=== PATIENT | male | born 1955 | race Caucasian/White ===

== ENCOUNTER 2025-02-02 09:20 | Outpatient (CLI) | payer MEDICARE, SELFPAY ==
--- NOTE | 2025-02-02 09:31 | ECG_ITS ---
Test Date: 2025-02-02 09:35:24 Measurements Intervals [place] Rate: 73 P: 31 MD: 171 QRS: -6 QRSD: 101 T: 174 QT: 379 QTc: 419 Interpretive Statements SINUS RHYTHM LEFT VENTRICULAR HYPERTROPHY AND ST-T CHANGE [VOLTAGE CRITERIA PLUS ST/T ABNORMALITY] No previous ECG available for comparison Electronically Signed On 02-02-2025 11:47:57 CDT by Shaq Rhoades M.D.
--- OUTSIDE RECORDS SUMMARY | 2025-02-02 10:05 | XMS_ITS | Encounter Summary ---
Author Organization [facility] Address [address] [place] [address] Care Team Providers Care Lieutenant Ballistics Name Role Phone Maral Morataya DO Primary Care Provider Maral Morataya DO Unavailable [phone] Encounter Details Date Type Department Care Team (Late Contact Info) Description 09/22/2018 Lab Requisition [facility] MAIN [facility] [address] [place] [id number] Unlisted, Ordering Provider, Social History Tobacco Use Types Packs/Day Years Used Date Smoking Tobacco: Light Smoker Smokeless Tobacco: Never Alcohol Use Standard Drinks/Week Comments Yes 0 (1 standard drink = 0.6 oz pur e alcohol) Sex and Gender Information Value Date Recorded Sex Assigned at Male 02/12/2022 10:41 AM CDT Gender Identity Male 02/12/2022 10:41 AM CDT Sexual Orientation Straight 02/12/2022 10 :41 AM CDT documented as of this encounter Plan of Treatment Upcoming Encounters Date Type Department Care Team (Late Contact Info) Description 02/23/2025 9:50 AM CDT Office Visit [facility] - Internal Med [address] [facility], [place] [phone] Maral Morataya DO [address] [place] [address] DIV OF [facility] [place] [id number] documented as of this encounter Visit Diagnoses Not on filedocumented in this encounter Additional Health Concerns Infection Onset Date Last Indicated Resolved Time COVID-19 Under Investigation 01/30/2021 01/30/2021 01/31/2021 2:11 AM CDT documented as of this encounter Care Teams Lieutenant Ballistics Relationship Specialty Start Date End Date Maral Morataya DO [address] [place] [address] PCP - General 06/02/17 Maral Morataya DO [address] OF [facility] [place] [address] PCP - Attributed-[facility] 03/09/23 12/27/24 documented as of this encounter
--- OUTSIDE RECORDS SUMMARY | 2025-02-02 10:05 | XMS_ITS | Encounter Summary ---
Author Organization [facility] Address [address] [facility] [place] [address] Care Team Providers Care Sawsmith Name Role Phone Maral Morataya DO Primary Care Provider [phone] Maral Morataya DO Unavailable [phone] Encounter Details Date Type Department Care Team (Late Contact Info) Description 09/23/2018 Lab Requisition [facility] [address] [place] [phone] Unlisted, Ordering Provider, Social History Tobacco Use [...] [facility] - Internal Med [address] [facility], [place] [phone] Maral Morataya DO [address] [place] [address] DIV OF [facility] [place] [phone] documented as of this encounter Procedures Procedure Name Priority Date/Time Associated Diagnosis Comments GLUCOSE VITALITY Routine 09/25/2018 7:55 AM SAVINGS TELLER HEMOGLOBIN A1C Routine 09/25/2018 7:55 AM SAVINGS TELLER LIPID PROFILE Routine 09/25/2018 7:55 AM SAVINGS TELLER documented in this encounter Results * HEMOGLOBIN A1C (09/25/2018 7:55 AM SAVINGS TELLER) Hemoglobin A1c 5.6 4.4 - 6.3 % 09/25/2018 10:15 AM SAVINGS TELLER [facility] Estimated Average Glucose 114 mg/dL 09/25/2018 10:15 AM [facility] Comment: HbA1c Interpretation: Treatment target values recommended by ADA and other clinical organizations should be used to evaluate metabolic control in patients. Treatment Target Values: Normal : < 5.7% Pre-diabetes: 5.7-6.4% Diabetes: Equal to or greater than 6.5% Reference: [place] [employer] Association Standards of Care in Diabetes -2014 In patients 70 years and older consider HbA1c target range of 7.0-7.5% Reference: Diabetes Mellitus in Older People: Position Statement on behalf of the International Association of Gerontology and Geriatrics (IAGG), the Diabetes Working Alliance Party for Older People (EDWPOP), and the International Task Force of Experts in Diabetes. Hans Garcia, et al. J [place] [employer] Association. 2012 Test results diagnostic of diabetes should be repeated for confirmation. The Tosoh G8 assay for the measurement of HbA1c is a National Glycohemoglobin Standardization Program (NGSP)certified method. Results for patients with HbE disease should be interpreted with caution as this hemoglobinopathy has been shown to interfere with the Tosoh G8 assay. Blood 09/25/2018 7:55 AM SAVINGS TELLER 09/25/2018 8:54 AM SAVINGS TELLER Ordering Provider Unlisted LAB - CHEM ISTRY ORDERABLES [facility] [address] [phone] * (ABNORMAL) LIPID PROFILE (09/25/2018 7:55 AM SAVINGS TELLER) Cholesterol Total 185 <200 mg/dL 09/25/2018 9:30 AM [facility] HDL 42 >40 mg/dL 09/25/2018 9:30 AM [facility] Comment: ATP III Classification of HDL Cholesterol: <40 mg/dL: Considered a major risk factor. >60 mg/dL: Considered a negative risk factor. LDL Calculated 126(H) <100 mg/dL 09/25/2018 9:30 AM [facility] Comment: ATP III Classification of LDL Cholesterol: <100 mg/dL: Optimal 100 - 129 mg/dL: Near Optimal/Above Optimal 130 - 159 mg/dL: Borderline High 160 - 189 mg/dL: High >190 mg/dL: Very High Triglycerides 87 <150 mg/dL 09/25/2018 9:30 AM [facility] Comment: ATP III Classification of Triglycerides: <150 mg/dL: Normal 150 - 199 mg/dL: Borderline High 200 - 400 mg/dL: High >500 mg/dL: Very High Blood 09/25/2018 7:55 AM SAVINGS TELLER 09/25/2018 8:54 AM SAVINGS TELLER Ordering Provider Unlisted LAB - CHEM ISTRY ORDERABLES Performing Organization Address City/[facility] [place] Co de Phone Number [address] [phone] * GLUCOSE VITALITY (09/25/2018 7:55 AM SAVINGS TELLER) Glucose 110 70 - 115 mg/dL 09/25/2018 9:20 AM [facility] Blood 09/25/2018 7:55 AM SAVINGS TELLER 09/25/2018 8:54 AM SAVINGS TELLER Ordering Provider Unlisted LAB - CHEM ISTRY ORDERABLES Performing Organization Address [facility]/ZIP Co de Phone Number [address] [phone] documented in this encounter Visit Diagnoses Not on filedocumented in this encounter Additional Health Concerns Infection Onset Date Last Indicated Resolved Time COVID-19 Under Investigation 01/30/2021 01/30/2021 01/31/2021 2:11 AM CDT documented as of this encounter Care Teams Sawsmith Relationship Specialty Start Date End Date Maral Morataya DO [address] [place] [address] PCP - General 06/02/17 Maral Morataya DO [address] OF [facility] [place] [phone] PCP - Attributed-[facility] 03/09/23 12/27/24 documented as of this encounter
--- OUTSIDE RECORDS SUMMARY | 2025-02-02 10:05 | XMS_ITS | Encounter Summary ---
Author Organization [facility] Address [address] [facility] [place] [address] Care Team Providers Care Mental Health Therapist Name Role Phone Maral Morataya DO Primary Care Provider [phone] Maral Morataya DO Unavailable [phone] Reason for Visit * Reason Onset Date Comments MEDICATION REFILL 09/09/2022 Encounter Details Date Type Department Care Team (Late st Contact Info) Description 09/09/2022 Refill [facility] [address] [facility] [place] [phone] Maral Morataya DO [address] [place] [address] OF [facility] [place] [phone] MEDICATION REFILL Social History Tobacco Use Types Packs/Day Years [...] AM CDT documented as of this encounter Miscellaneous Notes * Telephone Encounter - Jes Manuel RN - 09/09/2022 10:31 AM CDT Change of pharmacy Refill Request Ted Mejia JULIO: 03/25/22 NOV scheduled: 02/03/2023 LRF: 05/22/22 Qty Disp: 90 # of refills: 4 Allergies: No Known Allergies Pended Medication Order: Requested Prescriptions Pending Prescriptions Disp Refills ??? amLODIPine (Norvasc) 5 MG tablet 90 tablet 4 Sig: Take 1 (one) tablet by mouth once daily documented in this encounter Plan of Treatment Upcoming Encounters Date Type Department Care Team (Late st Contact Info) Description 02/23/2025 9:50 AM CDT Office Visit [facility] - Internal Med [address] [facility], [facility] [place] [phone] Maral Morataya DO [address] [facility] [address] DIV OF [facility] [place] [phone] documented as of this encounter Visit Diagnoses Diagnosis Essential hypertension documented in this encounter Care Teams Mental Health Therapist Relationship Specialty Start Date End Date Maral Morataya DO [address] [place] [address] PCP - General 06/02/17 Maral Morataya DO [address] [facility] [address] DIV OF [facility] [place] [phone] PCP - Attributed-[facility] ST[facility] 03/09/23 12/27/24 documented as of this encounter
--- OUTSIDE RECORDS SUMMARY | 2025-02-02 10:05 | XMS_ITS | Clinical Summary ---
Author Organization [facility] [employer] Address [address] [place] [address] Care Team Providers Care Registered Dental Assistant Name Role Phone Maral Morataya DO Primary Care Provider [phone] Source Comments [facility] [employer],non-owned Affiliates and Associated Physician Practices is amultiple site organization consisting of ambulatory clinics and hospital sitesin [place], [place], [place] and [place]. This disclosure is being madepursuant to the Care Everywhere program and may not contain all information available regarding this patient. Last updated 18.[facility] [employer] Allergies No known active allergies Medications * Be aware that medications may not be up to date on this document. Alwaysverify current medications with the patient. Medication Sig Dispensed Refills Start Date End Date Status opti-vitamin (V-R VISTION) tablet Take 1 (one) tablet by mouth once daily Active erythromycin (Romycin) 5 MG/GM ophthalmic ointment Instill into both eyes at bedtime Apply thin ribbon to lower lid(s) 3.5 g 5 12/23/2023 Active amLODIPine (Norvasc) 5 MG tabletIndications: Essential (primary) hypertension TAKE ONE TABLET BY MOUTH ONCE DAILY 90 tablet 2 04/27/2024 04/27/2025 Active valACYclovir (Valtrex) 500 MG tabletIndications: Herpesviral infection, unspecified TAKE ONE TABLET BY MOUTH ONCE DAILY 90 tablet 2 04/27/2024 04/27/2025 Active rosuvastatin (Crestor) 10 MG tabletIndications: Hyperlipidemia, unspecified TAKE ONE TABLET BY MOUTH ONCE DAILY 90 tablet 2 04/27/2024 04/27/2025 Active meloxicam (Mobic) 15 MG tabletIndications: Unilateral primary osteoarthritis, left knee TAKE ONE TABLET BY MOUTH ONCE DAILY 90 tablet 11/30/2024 11/30/2025 Active rOPINIRole (Requip) 1 MG tabletIndications: Restless legs syndrome TAKE ONE TABLET BY MOUTH FOUR TIMES A DAY 360 tablet 01/25/2025 01/25/2026 Active ibuprofen (MOTRIN) 800 MG tablet Take 1 (one) tablet by mouth once daily 01/25/2025 Discontinued (List Clean-Up) tobramycin-dexAMET Hasone (TOBRADEX) 0.3-0.1 % ophthalmic suspension Instill 1 (one) drop into right eye every 6 hours 5 mL 1 04/22/2022 01/25/2025 Discontinued (List Clean-Up) rOPINIRole (Requip) 1 MG tabletIndications: Restless legs syndrome TAKE ONE TABLET BY MOUTH FOUR TIMES A DAY 360 tablet 1 10/03/2024 01/25/2025 Discontinued (Reorder) Active Problems Problem Noted Date Diagnosed Date Acute pain of left knee 01/21/2023 Enlarged prostate with lower urinary tract sympt oms (LUTS) 06/03/2017 Overview (02/08/2018): Better with Alfuzosin HCl (UROXATRAL) 10 MG but uses Thursday and Thursday. ICD-10 update Nocturia 06/03/2017 Overview (02/08/2018): Better with Alfuzosin HCl (UROXATRAL) 10 MG but uses Thursday and Thursday. ICD-10 update Melanocytic nevus 10/24/2015 Neoplasm of uncertain behavior of skin 5 Actinic keratosis 10/24/2015 Other seborrheic keratosis 10/24/2015 Other melanin hyperpigmentation 10/24/2015 Hyperlipidemia 03/07/2014 Overview (02/08/2018): Off Rx. Will check labs and review treatment options again after that. Restless legs syndrome 03/07/2014 Overview (02/08/2018): Takes rOPINIRole (REQUIP) 1 MG One tab at 7 PM and 2 tabs at HS. This works well. Rx for TID given. Herpesviral infection 03/07/2014 Overview (02/08/2018): Exposure to oral herpes with outbreak in past. Rare flairs but wants to try suppression. Other options reviewed. Rx sent. Encounters Date Type Department Care Team Description 01/25/2025 Refill [facility] - Orthopedics [address] [place] [address], Formerly [facility] [place] [address] Maral Morataya, DO MEDICATION REFILL 11/30/2024 Refill [facility] - Internal Med [address] [place] [address], [place] [address] Maral Morataya, DO MEDICATION REFILL from Last 3 Months Immunizations Name Administration Dates Next Due DT (AGE 0-7) 07/10/2013 INFLUENZA VACCINE 08/16/2021 PNEUMOCOCCAL PCV20 CONJ VAC IM 03/25/2022 Pneumococcal Pcv13 Conj 02/22/2019 Zoster Hzv Vacc Recombinant Inj Im 08/19/2022, Family History Medical History Relation Name Comments Diabetes Father Hypertension Father Macular Degeneration Father Hypertension Mother Relation Name Status Comments Father Mother Social History Tobacco Use Types Packs/Day Years Used Date Smoking Tobacco: Light Smoker Cigars Smokeless Tobacco: Never Tobacco Cessation:Ready to Q uit: Not Asked; Counseling Given: Not Answered Alcohol Use Standard Drinks/Week Comments Yes 0 (1 standard drink = 0.6 oz pur e alcohol) PHQ-2 Answer Date Recorded Patient Health Questionnaire-2 Score 0 08/04/2023 Sex and Gender Information Value Date Recorded Sex Assigned at Male 02/12/2022 10:41 AM CDT Gender Identity Male 02/12/2022 10:41 AM CDT Sexual Orientation Straight 02/12/2022 10 :41 AM CDT Last Filed Vital Signs Vital Sign Reading Time Taken Comments Blood Pressure 138/72 08/11/2023 9:26 AM CDT Pulse 72 08/11/2023 9:26 AM CDT Temperature 36.5 C (97.7 F) 08/11/2023 9:26 AM CDT Respiratory Rate 16 03/10/2022 12:40 PM CDT Oxygen Saturation 96% 08/11/2023 9:26 AM CDT Inhaled Oxygen Concentration - - Weight 94.6 kg (208 lb 9.6 oz) 08/11/2023 9:26 A M CDT Height 182.9 cm (6') 08/11/2023 9:26 AM CDT Body Mass Index 28.29 08/11/2023 9:26 AM CDT Plan of Treatment Upcoming Encounters Date Type Department Care Team (Late st Contact Info) Description 02/23/2025 9:50 AM CDT Office Visit [facility] - Internal Med [address] [place] [address], [place] [phone] Maral Morataya, DO [address] [place] [address] OF [facility] [place] [address] Health Maintenance Due Date Last Done Comments COLON MONITORING 1955 COLONOSCOPY - COLON CA SCREENING 1953 CT COLONOGRAPHY - COLON CA SCREENING 1955 FLEX SIG - COLON CA SCREENING 1955 AAA SCREENING 2018 COLOGUARD (AGES 45-75) - COLON CA SCREENING 03/07/2022 03/07/2019 DTAP/TDAP/TD VACCINES (2 - Tdap) 07/10/2023 07/10/2013 Colorectal Cancer Screening 07/03/2024 FIT - COLON CA SCREENING 07/03/2024 07/03/2023, 04/10 COVID-19 VACCINE ( season) 2024 08/25/2023, 09/02/2022, 05/02/2022, Additional history exists DEPRESSION SCREENING 11/09/2024 02/03/2023 SCREENING FOR DIABETES 08/05/2026 , 04/03/2022, 04/03/2022, Additional history exists Respiratory Syncytial Virus (RSV) Vaccine Pt: or over 60 yrs (1 - 1-dose 75+ series) 2028 HEPATITIS C SCREENING Completed 10/08/2017 PNEUMOCOCCAL VACCINE 50+ Completed 03/25/2022, 02/07 ZOSTER VACCINE Completed 08/19/2022, 03/25/2022 INFLUENZA VACCINE Completed 08/11/2024, , 08/16/2021, Additional history exists HEPATITIS B VACCINE Aged Out No longe r eligible based on patient's age to complete this topic HIB VACCINE Aged Out No longer eligi ble based on patient's age to complete this topic HPV VACCINE Aged Out No longer eligi ble based on patient's age to complete this topic MENINGOCOCCAL (Group B) VACCINE SHARED DECISION-MAKING Aged Out No longer eligible based on patient's age to complete this topic MENINGOCOCCAL GROUPS A/C/Y/W VACCINE Aged Out No longer eligible based on patient's age to complete this topic Goals Goal Patient Goal Type Associated Problems Recent Progress Patient-Stated? Author Medication Management General On track( 023 3:15 PM CDT) Zurdo Ricks, RN Note: Expected end date: Interventions: Take all medications as prescribed Let your doctor know right away about any changes in your medications Make sure to request a refill of your medication at least one week prior to your last dose Procedures Procedure Name Priority Date/Time Associated Diagnosis Comments COMPREHENSIVE METABOLIC PANEL Routine 08/05/2023 7:45 AM CDT Essential hypertension Hyperlipidemia, unspecified hyperlipidemia type OCCULT BLOOD FECES FIT SCREEN Routine 07/03/2023 3:25 PM CDT Colon cancer screening COLOGUARD TEST Routine 03/07/2019 9:45 AM CDT Colon cancer screening HEPATITIS C ANTIBODY Routine 10/08/2017 7:53 AM CAR TRIMMER from Last 3 Months or Most Recently Relevant to Health Maintenance Results * (ABNORMAL) COMPREHENSIVE METABOLIC PANEL (08/05/2023 7:45 AM CDT) BUN 26 7 - 26 mg/dL 08/05/2023 8:36 AM CDT [facility] Creatinine 0.95 0.71 - 1.16 mg/dL 08/05/2023 8:36 AM CDT [facility] Sodium 139 136 - 145 mmol/L 08/05/2023 8:36 AM CDT [facility] Potassium 4.1 3.5 - 4.5 mmol/L 08/05/2023 8:36 AM [facility] Chloride 109(H) 98 - 107 mmol/L 08/05/2023 8:36 AM [facility] CO2 23 22 - 29 mmol/L 08/05/2023 8:36 AM [facility] Glucose 107 70 - 115 mg/dL 08/05/2023 8:36 AM [facility] Calcium 9.0 8.4 - 10.2 mg/dL 08/05/2023 8:36 AM [facility] Protein Total 6.7 6.0 - 8.3 g/dL 08/05/2023 8:36 AM [facility] Albumin 4.0 3.4 - 5.0 g/dL 08/05/2023 8:36 AM [facility] Bilirubin Total 1.1 0.2 - 1.2 mg/dL 08/05/2023 8:36 AM [facility] Alkaline Phosphatase 93 40 - 150 U/L 08/05/2023 8:36 AM [facility] ALT 49 5 - 55 U/L 08/05/2023 8:36 AM [facility] AST 32 5 - 34 U/L 08/05/2023 8:36 AM [facility] Anion Gap 7 6 - 16 08/05/2023 8:36 AM [facility] BUN/Creatinine Ratio 27(H) 7 - 23 08/05/2023 8:36 AM [facility] Osmolality Calculated 293 275 - 295 mOsm/kg 08/05/2023 8:36 AM [facility] Albumin/Globulin Ratio 1.5 1.1 - 2.3 08/05/2023 8:36 AM [facility] eGFR by CKD-EPI 87(L) >=90 mL/min/1.7 3 m2 08/05/2023 8:36 AM [facility] Blood BLOOD SPECIMEN / Unknown Lab Venipuncture / Unknown 08/05/2023 7:45 AM T 08/05/2023 8:09 AM CDT Maral Morataya DO LAB - CHEMISTRY ORDE RABLES [facility] [address] [place] [address], [facility] [phone] * OCCULT BLOOD FECES FIT SCREEN (07/03/2023 3:25 PM CDT) Occult Blood FIT Negative Negative 07/09/2023 2:14 PM CDT [facility] Stool STOOL SPECIMEN / Unknown Collection / Unknown 07/03/2023 3:25 PM CDT 07/08/2023 3:25 PM CDT Maral Morataya DO LAB - BODY FLUID ORD ERABLES [facility] [address] [place] [address] * [id number] COLOGUARD TEST *Associate with Z12.11 OR Z12.12 Dx Codes* (03/07/2019 9:45 AM CDT) Cologuard Negative Not Applicable [facility] Comment: A negative result indicates a low likelihood that a colorectal cancer (CRC) or an advanced adenoma (adenomatous polyps with more advanced pre-malignant features) is present. The chance that a person with a negative Cologuard test has a colorectal cancer is less than 1 in 1500 (negative predictive value >99.9%) or has an advanced adenoma is less than 5.3% (negative predictive value 94.7%). These data are based on a prospective cross-sectional screening study of 10,000 individuals at average risk for colorectal cancer who were screened with both Cologuard and colonoscopy. (Christina Dubon et al, N Engl J Med 2014;370(14):6379-5851) COLOGUARD RE-SCREENING RECOMMENDATION: Periodic routine colorectal cancer screening is an important part of preventive healthcare for asymptomatic persons at average risk for colorectal cancer. Following a negative Cologuard result, the [place] Cancer Society and U.S. Multi-Society Task Force screening guidelines recommend a Cologuard re-screening interval of 3 years. References: [place] [employer] Society (ACS). Colorectal cancer prevention and early detection. [place], [place]: [place] [employer] Society; [updated 2015Mar 02]. https://www.cancer.org/cancer/rishr-fdlwab-nfmyyg/fulncdzps-teymwyhbh-fvtkcit/ acs-recommendations.html. Accessed July 09, 2018; Rashad DK, Nora SILVERIO, Mariya RECINOS, Colorectal Cancer Screening: Recommendations for Physicians and Patients from the U.S. Multi-Society Task Force on Colorectal Cancer Screening, Am J Gastroenterology 2017; 112:1057-9459. Test Type: Composite algorithmic analysis of stool DNA-biomarkers with hemoglobin immunoassay. Quantitative values of individual biomarkers are not reportable and are not associated with individual biomarker result reference ranges. Precautions and Limitations: Cologuard is intended for colorectal cancer screening of adults of either sex, 50 years or older, who are at typical average-risk for colorectal cancer. A negative Cologuard test result does not guarantee the absence of colorectal cancer or advanced adenoma (pre-cancer). Patients with a negative Cologuard test result should be advised to continue participating in a colorectal cancer screening program. Cologuard may produce a positive result, even though a colonoscopy may not find colorectal cancer or precancerous polyps. The performance of Cologuard has been established in a cross sectional study (i.e., single point in time). Performance has not been evaluated in adults who have been previously tested with Cologuard or in patients less than 50 years of age. Cologuard has been approved for use by the U.S. FDA. Cologuard performance data in a 10,000 patient pivotal study using colonoscopy as the reference method can be accessed at the following location: www.[employer]/results. Additional description of the Cologuard test process, warnings and precautions can be found at www.cologuardtest.com. Rx Only. Stool specimen (specimen) STOOL SPECIMEN / Unknown 03/07/2019 9:45 AM CDT 03/08/2019 1:00 PM CDT Maral Morataya DO LAB - CHEMISTRY BEN HALL [facility] Organization Address City/State/ZIP Co de Phone Number [employer] [address] [address] * HEPATITIS C ANTIBODY (10/08/2017 7:53 AM CAR TRIMMER) Hepatitis C Antibody Non-react janet Non-reac tive [facility] Comment: Hepatitis C Antibody screen indicates no serologic evidence of past or current infection with Hepatitis C Virus. Patients with unexplained liver disease who are immunocompromised or suspected of having acute Hepatitis C infection may benefit from Nucleic Acid Test (AGGIE) for Hepatitis C Viral RNA to confirm Hepatitis C status. Blood specimen (specimen) BLOOD SPECIMEN / Unknown 10/08/2017 7:53 AM CAR TRIMMER 10/08/2017 7:58 AM CAR TRIMMER Nicolette Arellano MD LAB - CHEMISTR Y ORDERABLES [facility] [address] [place], [place] [id number] [place] [address] from Last 3 Months or Most Recently Relevant to Health Maintenance Care Teams Registered Dental Assistant Relationship Specialty Start Date End Date Maral Morataya DO [address] [place] [address] PCP - General 06/02/17
--- OUTSIDE RECORDS SUMMARY | 2025-02-02 10:05 | XMS_ITS | Encounter Summary ---
Author Organization [facility] Address [address] [facility] [place] [address] Care Team Providers Care General Assembler Name Role Phone Maral Morataya DO Primary Care Provider [phone] Maral Morataya DO Unavailable [phone] Encounter Details Date Type Department Care Team (Late st Contact Info) Description 01/14/2019 Telephone [facility] General Internal Medicine [address] [address] Carina Perez DO [address] [place] [address] Social History Tobacco Use Types Packs/Day Years [...] encounter Miscellaneous Notes * Telephone Encounter - Cely Harrell - 01/14/2019 9:05 AM CST Pt has called in to ask Dr. Perez to release him from her care because pt needs to be seen soon aspossible due to having no medication refill and can not wait until 06/08/19 for an appt. Please reach out to pt. Thank you OR ENGINEERING MANAGER documented in this encounter Plan of Treatment Upcoming Encounters Date Type Department Care Team (Late st Contact Info) Description 02/23/2025 9:50 AM CDT Office Visit [facility] - Internal Med [address] [facility], [facility] [place] [address] Maral Morataya DO [address] [facility] [address] [place] [address] documented as of this encounter Visit Diagnoses Not on filedocumented in this encounter Additional Health Concerns Infection Onset Date Last Indicated Resolved Time COVID-19 Under Investigation 01/30/2021 01/30/2021 01/31/2021 2:11 AM CDT documented as of this encounter Care Teams General Assembler Relationship Specialty Start Date End Date Maral Morataya DO [address] [place] [address] PCP - General 06/02/17 Maral Morataya DO [address] [facility] [address] [place] [address] PCP - Attributed-[facility] 03/09/23 12/27/24 documented as of this encounter
--- OUTSIDE RECORDS SUMMARY | 2025-02-02 10:05 | XMS_ITS | Encounter Summary ---
Author Organization [facility] Address [address] [place] [address] Care Team Providers Care Desolderer Name Role Phone Maral Morataya DO Primary Care Provider [phone] Maral Morataya DO Unavailable [phone] Encounter Details Date Type Department Care Team (Late Contact Info) Description 09/15/2018 Lab Requisition [facility] [address] [place] [phone] Unlisted, Ordering Provider, Social History Tobacco Use [...] [facility] [address] [facility], [place] [address] Maral Morataya DO [address] [place] [address] DIV OF [facility] [place] [address] documented as of this encounter Visit Diagnoses Not on filedocumented in this encounter Additional Health Concerns Infection Onset Date Last Indicated Resolved Time COVID-19 Under Investigation 01/30/2021 01/30/2021 01/31/2021 2:11 AM CDT documented as of this encounter Care Teams Desolderer Relationship Specialty Start Date End Date Maral Morataya DO [address] [place] [address] PCP - General 06/02/17 Maral Morataya DO [address] OF [facility] [place] [address] PCP - Attributed[facility] 03/09/23 12/27/24 documented as of this encounter
--- OUTSIDE RECORDS SUMMARY | 2025-02-02 10:05 | XMS_ITS | Continuity of Care Document ---
Author Organization [facility] Address [address] [place] [address] Phone Care Team Providers Care Whitewasher Name Role Phone Gisel Mejia Unavailable Unavailabl e Allergies, Adverse Reactions, Alerts Substance Reaction Status Criticality No Known Drug Allergies Other Active No I nformation Medications Medication Instructions Dosage Effective Dates (start - stop) Status Comments Requip 2 mg tablet 1 AT BEDTIME AND 1/2 DURING DAY - Active Slo-Niacin 500 mg tablet,extended release take 2 tablet by oral route every day at bedtime - Active Crestor 5 mg tablet take 1 Tablet by ora l route every day 5 MG - Active Uroxatral 10 mg tablet,extended release take 1 tablet by oral route every day 10 MG - Active VITAMIN D 1,000 UNIT TABLET 2 QD 5 MG - Active ASPIRIN 81MG TABS 1 QD-daily 5 MG - Active Advance Directives Directive Yes / No Effective Date File Name No Information Encounters Encounter Description Practice Location Reason(s) For Visit Diagnoses Date Provider Providers Copied on Encounter [facility], [address], [place], [place], [address] , [place] tel: [phone] Steven No Information 6 Jorden Batres. [address] [place], [address], [place]. [phone] [facility], [address], [place], [place], [address] , tel: [phone] Steven No Information 4 Melvin Grande. [address] [place], [place], [address], [place]. [phone] [facility], [address], [place], [place], [address] , [place] tel: [phone] [place] RLS (restless legs syndrome)PURE HYPERCHOLESTEROLEMR outine general medical examination [facility] disordersRoutine general medical examination at a health care facility 3 Melvin Grande. [address] [place], [place], [address], [place]. [phone] Referring Provider: Harjinder Dawn, [address] [place], [address] . tel:[phone] [facility], [address], [place], [place], [address] , tel: [phone] Steven No Information 1 Melvin Lagun[address] [place], [place], [address], [place]. 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 tel:[phone] [facility], [address], [place], [place], [address] , [place] tel: [phone] Steven VITAMIN D DEFICIENCY NOS 0 [facility]. [address], [place], [address], [place]. [facility], [address], [place], [place], [address] , tel: [phone] Steven PRSNL HST COLONIC POLYPSTEAR MENISCUS NEC-CURRENROUTINE MEDICAL EXAM [address] [place], [place], [address], [place]. tel:[phone] [facility], [address], [place], [place], [address] , tel: [phone] Steven No Information [address] Mel[address] [place], [address], . tel:[phone] [facility], [address], [place], [place], [address] , tel: [phone] [place] IMPAIRED FASTING GLUCOSE [address] Mel[address] [place], [place], [address], [place]. tel:[phone] [facility], [address], [place], [place], [address] , tel: [phone] [place] SCREEN MAL NEOP-RECTUM [address] Mel[address] Lagun[address] [place], [place], [address], . tel:[phone] Family History Family Member Type Diagnosis Age At Onset Mother Problem (finding) hypertension Father Problem (finding) raised blood lipids Father Problem (finding) hypertension Father Problem (finding) coronary arterioscleros is Payers Payer name Insurance type Covered republican ID Kelly contreras(s) [employer] OPEN ACCESS I II III CI [id number] Social History Type Description Quantity Date Captured Comments Alcohol Use Details Unknown Caffeine Use Details Unknown Tobacco Use Status No Information Smoking Status No Information Sex Male Chief Complaint And Reason For Visit No Information Reason For Referral Reason For Referral No Information History Of Present Illness Encounter Date Complaint History Of Prese nt Illness No Information Functional Status Date Functional Assessmen t No Information Instructions Date Instruction Additional Infor mation No Information Assessments Type Assessment Date No Information Patient Care Teams Name Effective Dates (start - stop) Status Members No Information
== END 2025-02-02 09:21 | disposition home or self-care (01) ==
LOC: ANHSURGERY 09:29
PROVIDERS: Visit Provider Urology
DX: E78.5 Hyperlipidemia, unspecified (principal); I10 Essential (primary) hypertension
CPT/HCPCS: 93005

== ENCOUNTER 2025-02-07 01:46 | Day surgery (SDC) | payer MEDICARE, SELFPAY ==
[2025-02-01 10:04] VITALS: BMI 29.8
--- NOTE | 2025-02-01 10:17 | PC.NURSE ---
Report to the Outpatient Waiting Room, entrance under the green pavilion located off [facility], at time __0700am on date __02/07/25 . Planned Procedure Time: ___0900am .? Time changes happen often and if your time is changed the preop area will call you the afternoon before. - You and your visitor will be asked to self-screen and do not enter if you have any COVID symptoms. Please call surgeon if you need to reschedule. - A mask is optional within the hospital at this time. Patients may have clear liquids (water, carbonated beverages, clear teas, apple juice) until 3 hours prior to surgery with a maximum of 20 ounces. - No food from midnight until time of surgery and no smoking, or chewing tobacco (or any form of nicotine). No chewing gum, candy or mints. (0600am) Take only the following medications with a SIP of water on the morning of surgery: ____Amlodipine DO NOT STOP ANY OF YOUR OTHER PRESCRIPTION MEDICATIONS PRIOR TO SURGERY EXCEPT THE FOLLOWING Hold all vitamins and supplements for 3 days per anesthesiologist. Date to take last dose is 02/03/25 Medications to discontinue per physician Meloxicam for [address] Ku Date to take last dose__01/29/25 Please no make-up, nail solomon islander, hairspray, perfume, deodorant, or body powder the day of surgery.? No jewelry (including any body piercings) or valuables the day of surgery, leave them at home.? Please take a shower or bath the night before, or the morning of, surgery with an antibacterial soap.? Wear comfortable, loose fitting clothing.? - Jewelry must be removed prior to entering the operating room.? Rings and piercings that are not removed may be cut off. - The hospital will not accept responsibility for valuables.? - Please leave all valuables, including medications, at home the day of surgery. If you are going home after surgery, a licensed cdl a driver must drive you home.? - NO public transportation without another adult if you receive anesthesia. - We recommend that an adult stay with you for 24 hours following discharge. - We also recommend that you do not drive, make important decision, drink alcoholic beverages, or take any drugs that were not prescribed by your health care provider for at least 24 hours after your discharge time. Follow any additional instructions given to you from your surgeon. Telephone instructions given to ___Patient and asked if any additional questions and then verbalized understanding. Patient advised to call surgeon office or pre surgery nurse liaison [phone] if any additional questions.
[2025-02-07] VITALS (8 sets, daily range): BP systolic 123–168; BP diastolic 68–104; PULSE 70–82; RESP 12–16; TEMP 36.4–36.5; O2SAT 93–96
--- OUTSIDE RECORDS SUMMARY | 2025-02-07 01:52 | XMS_ITS | Encounter Summary ---
Author Organization [facility] Address [address] [place] [address] Care Team Providers Care Child Health Associate Name Role Phone Maral Morataya DO Primary Care Provider [phone] Maral Morataya DO Unavailable [phone] Encounter Details Date Type Department Care Team (Late st Contact Info) Description 01/14/2019 Telephone [facility] General Internal Medicine [address] [address] Carina Perez DO [address] [place] [address] Social History Tobacco Use Types Packs/Day Years [...] Please reach out to pt. Thank you [place] documented in this encounter Plan of Treatment Upcoming Encounters Date Type Department Care Team (Late st Contact Info) Description 02/23/2025 9:50 AM CDT Office Visit [facility] - Internal Med [address] [facility], [facility] [place] [address] Maral Morataya DO [address] [facility] 2[address] [place] [address] documented as of this encounter Visit Diagnoses Not on filedocumented in this encounter Additional Health Concerns Infection Onset Date Last Indicated Resolved Time COVID-19 Under Investigation 01/30/2021 01/30/2021 01/31/2021 2:11 AM CDT documented as of this encounter Care Teams Child Health Associate Relationship Specialty Start Date End Date Maral Morataya DO [address] [place] [address] PCP - General 06/02/17 Maral Morataya DO [address] [facility] 2[address] [place] [address] PCP - Attributed-[facility] STL 03/09/23 12/27/24 documented as of this encounter
--- OUTSIDE RECORDS SUMMARY | 2025-02-07 01:52 | XMS_ITS | Encounter Summary ---
Author Organization [facility] Address [address] [facility] [place] [address] Care Team Providers Care Compliance Review Officer Name Role Phone Maral Morataya DO Primary Care Provider Maral Morataya DO Unavailable [phone] Encounter Details Date Type Department Care Team (Late Contact Info) Description 09/22/2018 Lab Requisition [facility] MAIN LAB [address] [place] [phone] Unlisted, Ordering Provider, Social History Tobacco Use [...] [facility] - Internal Med [address] [facility] [place] [facility], [place] [address] Maral Morataya DO [address] [place] [address] DIV OF [facility] [place] [address] documented as of this encounter Visit Diagnoses Not on filedocumented in this encounter Additional Health Concerns Infection Onset Date Last Indicated Resolved Time COVID-19 Under Investigation 01/30/2021 01/30/2021 01/31/2021 2:11 AM CDT documented as of this encounter Care Teams Compliance Review Officer Relationship Specialty Start Date End Date Maral Morataya DO [address] [place] [address] PCP - General 06/02/17 Maral Morataya DO [address] OF [facility] [place] [address] PCP - Attributed-[facility] STL 03/09/23 12/27/24 documented as of this encounter
--- OUTSIDE RECORDS SUMMARY | 2025-02-07 01:52 | XMS_ITS | Encounter Summary ---
Author Organization [facility] Address [address] [facility] [place] [address] Care Team Providers Care Sand Cutter Operator Name Role Phone Maral Morataya DO Primary Care Provider [phone] Maral Morataya DO Unavailable [phone] Reason for Visit * Reason Onset Date Comments MEDICATION REFILL 09/09/2022 Encounter Details Date Type Department Care Team (Late st Contact Info) Description 09/09/2022 Refill [facility] General Internal Medicine [address] [facility], [place] [address] Maral Morataya DO [address] [place] [address] OF [facility] [place] [address] MEDICATION REFILL Social History Tobacco Use Types [...] Description 02/23/2025 9:50 AM CDT Office Visit [facility] - Internal Med [address] [facility], [facility] [place] [address] Maral Morataya DO [address] [facility] 2L DIV OF [facility] [place] [address] documented as of this encounter Visit Diagnoses Diagnosis Essential hypertension documented in this encounter Care Teams Sand Cutter Operator Relationship Specialty Start Date End Date Maral Morataya DO [address] [place] [address] PCP - General 06/02/17 Maral Morataya DO [address] [facility] 2L DIV OF [facility] [place] [address] PCP - Attributed-[facility] STL 03/09/23 12/27/24 documented as of this encounter
--- OUTSIDE RECORDS SUMMARY | 2025-02-07 01:52 | XMS_ITS | Encounter Summary ---
Author Organization [facility] Address [address] [facility] [place] [address] Care Team Providers Care Printing Plate Maker Name Role Phone Maral Morataya DO Primary Care Provider Maral Morataya DO Unavailable Encounter Details Date Type Department Care Team (Late Contact Info) Description 09/23/2018 Lab Requisition [facility] MAIN LAB [address] [place] [phone] Unlisted, Ordering Provider, Social History Tobacco Use [...] [facility] Med [address] [facility], [place] [address] Maral Morataya DO [address] [place] [address] DIV OF [facility] [place] [address] documented as of this encounter Procedures Procedure Name Priority Date/Time Associated Diagnosis Comments GLUCOSE VITALITY Routine 09/25/2018 7:55 AM CLIENT SPECIALIST HEMOGLOBIN A1C Routine 09/25/2018 7:55 AM CLIENT SPECIALIST LIPID PROFILE Routine 09/25/2018 7:55 AM CLIENT SPECIALIST documented in this encounter Results * HEMOGLOBIN A1C (09/25/2018 7:55 AM CLIENT SPECIALIST) Hemoglobin A1c 5.6 4.4 - 6.3 % 09/25/2018 10:15 AM CLIENT SPECIALIST [facility] Estimated Average Glucose 114 mg/dL 09/25/2018 10:15 AM [facility] Comment: HbA1c Interpretation: Treatment target values recommended by ADA and other clinical organizations should be used to evaluate metabolic control in patients. Treatment Target Values: Normal : < 5.7% Pre-diabetes: 5.7-6.4% Diabetes: Equal to or greater than 6.5% Reference: [place] Diabetes Association Standards of Care in Diabetes -2014 In patients 70 years and older consider HbA1c target range of 7.0-7.5% Reference: Diabetes Mellitus in Older People: Position Statement on behalf of the International Association of Gerontology and Geriatrics (IAGG), the Diabetes Working Green Party for Older People (EDWPOP), and the International Task Force of Experts in Diabetes. Hans Garcia, et al. J [place] Medical Directors Association. 2012 Test results diagnostic of diabetes should be repeated for confirmation. The Tosoh G8 assay for the measurement of HbA1c is a National Glycohemoglobin Standardization Program (NGSP)certified method. Results for patients with HbE disease should be interpreted with caution as this hemoglobinopathy has been shown to interfere with the Tosoh G8 assay. Blood 09/25/2018 7:55 AM CLIENT SPECIALIST 09/25/2018 8:54 AM CLIENT SPECIALIST Ordering Provider Unlisted LAB - CHEM ISTRY ORDERABLES [facility] [address] [phone] * (ABNORMAL) LIPID PROFILE (09/25/2018 7:55 AM CLIENT SPECIALIST) Cholesterol Total 185 <200 mg/dL 09/25/2018 9:30 AM [facility] HDL 42 >40 mg/dL 09/25/2018 9:30 AM [facility] Comment: ATP III Classification of HDL Cholesterol: <40 mg/dL: Considered a major risk factor. >60 mg/dL: Considered a negative risk factor. LDL Calculated 126(H) <100 mg/dL 09/25/2018 9:30 AM [facility] Comment: ATP III Classification of LDL Cholesterol: <100 mg/dL: Optimal 100 - 129 mg/dL: Near Optimal/Above Optimal 130 - 159 mg/dL: Borderline High 160 - 189 mg/dL: High >190 mg/dL: Very High Triglycerides 87 <150 mg/dL 09/25/2018 9:30 AM [facility] Comment: ATP III Classification of Triglycerides: <150 mg/dL: Normal 150 - 199 mg/dL: Borderline High 200 - 400 mg/dL: High >500 mg/dL: Very High Blood 09/25/2018 7:55 AM CLIENT SPECIALIST 09/25/2018 8:54 AM CLIENT SPECIALIST Ordering Provider Unlisted LAB - CHEM ISTRY ORDERABLES Performing Organization Address City/[facility] Co de Phone Number [address] [phone] * GLUCOSE VITALITY (09/25/2018 7:55 AM CLIENT SPECIALIST) Glucose 110 70 - 115 mg/dL 09/25/2018 9:20 AM [facility] Blood 09/25/2018 7:55 AM CLIENT SPECIALIST 09/25/2018 8:54 AM CLIENT SPECIALIST Ordering Provider Unlisted LAB - CHEM ISTRY ORDERABLES Performing Organization Address [facility]/ZIP Co de Phone Number [address] [phone] documented in this encounter Visit Diagnoses Not on filedocumented in this encounter Additional Health Concerns Infection Onset Date Last Indicated Resolved Time COVID-19 Under Investigation 01/30/2021 01/30/2021 01/31/2021 2:11 AM CDT documented as of this encounter Care Teams Printing Plate Maker Relationship Specialty Start Date End Date Maral Morataya DO [address] [place] [address] PCP - General 06/02/17 Maral Morataya DO [address] OF [facility] [place] [phone] PCP - Attributed-[facility] STL 03/09/23 12/27/24 documented as of this encounter
--- OUTSIDE RECORDS SUMMARY | 2025-02-07 01:52 | XMS_ITS | Encounter Summary ---
Author Organization [facility] Address [address] [facility] [place] [address] Care Team Providers Care Woodyard Crane Operator Name Role Phone Maral Morataya DO Primary Care Provider [phone] Maral Morataya DO Unavailable Encounter Details Date Type Department Care Team (Late Contact Info) Description 09/15/2018 Lab Requisition [facility] [address] MA[facility] LAB [address] [place] [phone] Unlisted, Ordering Provider, Social History Tobacco Use [...] [facility] - [facility] Med [address] [facility], [place] [address] Maral Morataya DO [address] [place] [address] DIV OF [facility] [place] [place] [address] documented as of this encounter Visit Diagnoses Not on filedocumented in this encounter Additional Health Concerns Infection Onset Date Last Indicated Resolved Time COVID-19 Under Investigation 01/30/2021 01/30/2021 01/31/2021 2:11 AM CDT documented as of this encounter Care Teams Woodyard Crane Operator Relationship Specialty Start Date End Date Maral Morataya DO [address] [place] [address] PCP - General 06/02/17 Maral Morataya DO [address] OF [facility] [place] [address] PCP - Attributed-[facility] STL 03/09/23 12/27/24 documented as of this encounter
--- OUTSIDE RECORDS SUMMARY | 2025-02-07 01:52 | XMS_ITS | Continuity of Care Document ---
Author Organization [facility] Address [address] [place] [address] Phone Care Team Providers Care Gym Supervisor Name Role Phone Gisel Mejia Unavailable Unavailabl [...] Diagnoses Date Provider Providers Copied on Encounter [facility], [address], [place], [place], [address] , [place] tel: [phone] Steven No Information 6 Jorden Batres. [address] [place], [address], [place]. tel:[phone] [facility], [address], [place], [place], [address] , tel: [phone] Steven No Information 4 Melvin Grande. [address] [place], [place], [address], [place]. [phone] [facility], [address], [place], [place], [address] , [place] tel: [phone] [place] RLS (restless legs syndrome)PURE HYPERCHOLESTEROLEMR outine general medical examination at a [facility] valve disordersRoutine general medical examination at a health care facility 3 Melvin Grande. [address] [place], [place], [address], [place]. [phone] Referring Provider: Harjinder Dawn, [address] [place], [address] . tel:[phone] [facility], [address], [place], [place], [address] , tel: [phone] Steven No Information 1 Melvin Lagunas [place], [place], [address], [place]. 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 tel:[phone] [facility], [address], [place], [place], [address] , [place] tel: [phone] Steven VITAMIN D DEFICIENCY NOS 0 Conversion Doctor. [address], [place], [address], [place]. [facility], [address], [place], [place], [address] , tel: [phone] Steven PRSNL HST COLONIC POLYPSTEAR MENISCUS NEC-CURRENROUTINE MEDICAL EXAM 9 Melvin Lagunas [place], [place], [address], [place]. tel:[phone] [facility], [address], [place], [place], [address] , tel: [phone] Steven No Information 9 Melvin Lagunas [place], [place], [address], . tel:[phone] [facility], [address], [place], [place], [address] , tel: [phone] [place] IMPAIRED FASTING GLUCOSE 8 Melvin Lagunas [place], [place], [address], [place]. [phone] [facility], [address], [place], [place], [address] , tel: [phone] [place] SCREEN MAL NEOP-RECTUM 8 Melvin Lagunas [place], [place], [address], . tel:[phone] Family History Family Member Type Diagnosis Age At Onset Father Problem (finding) coronary arterioscleros is Father Problem (finding) hypertension Father Problem (finding) raised blood lipids Mother Problem (finding) hypertension Payers Payer name Insurance type Covered republican ID Kelly contreras(s) Identification International OPEN ACCESS I II III CI [id number] Social History Type Description Quantity Date [...]
--- OUTSIDE RECORDS SUMMARY | 2025-02-07 01:52 | XMS_ITS | Clinical Summary ---
Author Organization [facility] Address [address] [facility] [place] [address] Care Team Providers Care Medical Customer Service Representative Name Role Phone Maral Morataya DO Primary Care Provider Source Comments [facility],non-owned Affiliates and Associated Physician Practices is amultiple site organization consisting of ambulatory clinics and hospital sitesin [place], [place], [place] and [place]. This disclosure is being madepursuant to the Care Everywhere program and may not contain all information available regarding this patient. Last updated 18.[facility] Allergies No known active allergies Medications * [...] 01/25/2025 Refill [facility] [address] [place] [address], [facility] [place] [address] Maral Morataya, DO MEDICATION REFILL 11/30/2024 Refill [facility] - Internal Med [address] [place] [address], [place] [address] Maral Morataya, DO MEDICATION REFILL from Last [...] Visit [facility] [address] [place] [address], [place] [address] Maral Morataya, DO [address] [place] [address] OF [facility] [place] [phone] Health Maintenance Due Date Last Done Comments [...] HEPATITIS C ANTIBODY Routine 10/08/2017 7:53 AM SAMPLE PROCESSOR from Last 3 Months or Most Recently Relevant to Health Maintenance Results * (ABNORMAL) COMPREHENSIVE METABOLIC PANEL (08/05/2023 7:45 AM CDT) BUN 26 7 - 26 mg/dL 08/05/2023 8:36 AM CDT [facility] Creatinine 0.95 0.71 - 1.16 mg/dL 08/05/2023 8:36 AM CDT [facility] Sodium 139 136 - 145 mmol/L 08/05/2023 8:36 AM CDT [facility] Potassium 4.1 3.5 - 4.5 mmol/L 08/05/2023 8:36 AM [facility] Chloride 109(H) 98 - 107 mmol/L 08/05/2023 8:36 AM [facility] CO2 23 22 - 29 mmol/L 08/05/2023 8:36 AM [facility] Glucose 107 70 - 115 mg/dL 08/05/2023 8:36 AM [facility] Calcium 9.0 8.4 - 10.2 mg/dL 08/05/2023 8:36 AM [facility] Protein Total 6.7 6.0 - 8.3 g/dL 08/05/2023 8:36 AM [facility] Albumin 4.0 3.4 - 5.0 g/dL 08/05/2023 8:36 AM [facility] Bilirubin Total 1.1 0.2 - 1.2 mg/dL 08/05/2023 8:36 AM [facility] Alkaline Phosphatase 93 40 - 150 U/L 08/05/2023 8:36 AM [facility] ALT 49 5 - 55 U/L 08/05/2023 8:36 AM [facility] AST 32 5 - 34 U/L 08/05/2023 8:36 AM [facility] Anion Gap 7 6 - 16 08/05/2023 8:36 AM [facility] BUN/Creatinine Ratio 27(H) 7 - 23 08/05/2023 8:36 AM [facility] Osmolality Calculated 293 275 - 295 mOsm/kg 08/05/2023 8:36 AM [facility] Albumin/Globulin Ratio 1.5 1.1 - 2.3 08/05/2023 8:36 AM [facility] eGFR by CKD-EPI 87(L) >=90 mL/min/1.7 3 m2 08/05/2023 8:36 AM [facility] Blood BLOOD SPECIMEN / Unknown Lab Venipuncture / Unknown 08/05/2023 7:45 AM T 08/05/2023 8:09 AM CDT Maral Morataya DO LAB - CHEMISTRY ORDE RABLES [facility] [address] [place] [address], [facility] [phone] * OCCULT BLOOD FECES FIT SCREEN (07/03/2023 3:25 PM CDT) Occult Blood FIT Negative Negative 07/09/2023 2:14 PM CDT [facility] Stool STOOL SPECIMEN / Unknown Collection / Unknown 07/03/2023 3:25 PM CDT 07/08/2023 3:25 PM CDT Maral Morataya DO LAB - BODY FLUID ORD ERABLES [facility] [address] [place] [address] * [id number] COLOGUARD TEST *Associate with Z12.11 OR Z12.12 Dx Codes* (03/07/2019 9:45 AM CDT) Cologuard Negative Not Applicable [facility] Comment: A negative result indicates [...] Dubon et al, N Engl J Med 2014;370(14):1652-6109) COLOGUARD RE-SCREENING RECOMMENDATION: Periodic routine colorectal cancer screening is an important part of preventive healthcare for asymptomatic persons at average risk for colorectal cancer. Following a negative Cologuard result, the [place] Cancer Society and U.S. Multi-Society Task Force screening guidelines recommend a Cologuard re-screening interval of 3 years. References: [place] Cancer Society (ACS). Colorectal cancer prevention and early detection. [place], [place]: [place] Cancer Society; [updated 2015Mar 02]. https://www.cancer.org/cancer/hclqt-jenefr-qsgvtn/cgwdatdoh-ooudicrmt-ldpfoyu/ acs-recommendations.html. Accessed July 09, 2018; Rashad DK, Nora SILVERIO, Mariya RECINOS, Colorectal Cancer Screening: Recommendations for Physicians and Patients from the U.S. Multi-Society Task Force on Colorectal Cancer Screening, Am J Gastroenterology 2017; 112:7604-8747. Test Type: Composite algorithmic analysis of stool [...] can be accessed at the following location: www.[employer]ut/results. Additional description of the Cologuard test process, warnings and precautions can be found at www.cologuardtest.com. Rx Only. Stool specimen (specimen) STOOL SPECIMEN / Unknown 03/07/2019 9:45 AM CDT 03/08/2019 1:00 PM CDT Maral Morataya DO LAB - CHEMISTRY [facility] Organization Address City/State/ZIP Co de Phone Number [facility] [address] [address] * HEPATITIS C ANTIBODY (10/08/2017 7:53 AM SAMPLE PROCESSOR) Hepatitis C Antibody Non-react janet Non-reac tive [facility] Comment: Hepatitis C Antibody screen indicates no serologic evidence of past or current infection with Hepatitis C Virus. Patients with unexplained liver disease who are immunocompromised or suspected of having acute Hepatitis C infection may benefit from Nucleic Acid Test (AGGIE) for Hepatitis C Viral RNA to confirm Hepatitis C status. Blood specimen (specimen) BLOOD SPECIMEN / Unknown 10/08/2017 7:53 AM SAMPLE PROCESSOR 10/08/2017 7:58 AM SAMPLE PROCESSOR Nicolette Arellano MD LAB - CHEMISTR Y ORDERABLES [facility] [address] [place], [place] [id number] [place] [address] from Last 3 Months or Most Recently Relevant to Health Maintenance Care Teams Medical Customer Service Representative Relationship Specialty Start Date End Date Maral Morataya DO [address] [place] [address] PCP - General 06/02/17
--- NOTE | 2025-02-07 07:22 | P.PNAN_ITS ---
Anes - Initial Pre Proc Eval Procedure: Operation Date: 02/07/25 08:00 Proposed Procedures p Right Hydrocelectomy with Orchiopexy - Sha Ku MD Date/Time: 02/07/25 07:22 Surgeon: Sha Ku MD Pre Op Diagnosis: right hydrocele Patient Data Age: 69 Gender: M Height: 1.8 m Weight: 97.3 kg Last Vital Signs Temp 97.7 F 02/07/25 06:10 Pulse 76 02/07/25 06:10 Resp 16 02/07/25 06:10 BP 168/77 H 02/07/25 06:10 Pulse Ox 96 02/07/25 06:10 O2 Del Method Room Air 02/07/25 06:10 Allergies Allergy/AdvReac Type Severity Reaction Status Date / Time No Known Allergies Allergy Verified 02/07/25 06:36 Home Medications ?Medication ?Instructions ?Recorded ?Confirmed ?Type amlodipine 5 mg tablet 5 mg PO DAILY 02/01/25 02/07/25 History meloxicam 15 mg tablet 15 mg PO DAILY 02/01/25 02/07/25 History ropinirole 1 mg tablet 1 mg PO QID 02/01/25 02/07/25 History rosuvastatin 10 mg tablet 10 mg PO DAILY 02/01/25 02/07/25 History valacyclovir 500 mg tablet 500 mg PO DAILY 02/01/25 02/07/25 History vit A 1,500 mcg-C 60 mg-E 20 1 tablet PO DAILY 02/01/25 02/07/25 History mg-zinc ox-copper [id number] tablet (Lutein Plus With Zeaxanthin) Patient hx anesthesia problems: none Family hx anesthesia problems: none Results Review: All pre-operative results and documents have been reviewed as part of the pre- operative evaluation. [facility] Social History Social History Smoking status: Current some day smoker Tobacco type: cigars Alcohol intake: current Drinks per week: 3 Substance use: never Living arrangements: with family Additional living arrangements comments: with kids Spiritual care concerns: No Anes - Eval Final PreProcedure Day of Procedure 02/07/25 07:22 Patient weight: overweight Lungs: normal air movement Airway: Mallampati scale class II Neurological: alert and oriented Last oral intake: >/= 8 hours ASA classification: II Emergent: no Anesthetic plan: proceed Anesthesia type and monitoring: general and standard monitoring Results Review: All pre-operative results and documents have been reviewed as part of the pre- operative evaluation. HTN, hyperlipidemia. Pt active bike rider, no cp or sob. Informed Consent: The patient's anesthetic plan and its attendant risks and benefits were discussed with the patient/family/POA. Questions were solicited and answers provided to the satisfaction of the patient/family/POA.
--- NOTE | 2025-02-07 07:30 | WPDHPUPDATE1 ---
History and Physical Update Update Date/Time: 02/07/25 07:30 History and Physical has been reviewed, including an updated exam of the patient. There are NO changes in the patient's condition. Risks, benefits, and alternatives have been discussed and questions answered. Patient agrees to proceed with procedure.
[2025-02-07] MEDS: LIDOCAINE 1% LOCAL INJ 20 ML VIAL INFILTRATE (08:00)
[2025-02-07] MEDS: ceFAZolin 2 GM/D5W 50 ML 2 GM/50 ML BAG IVPB (08:00)
[2025-02-07] MEDS: NEOMYCIN/POLYMYXIN/BACITRACIN OINTMENT 15 GM TUBE 1 APPLIC TOPICAL (08:49)
--- NOTE | 2025-02-07 08:54 | W.PM.PROC2 ---
Procedure Note - Detailed Date of Procedure 02/07/25 Pre-op Diagnosis right hydrocele Post-op Diagnosis Same Procedure Performed Right hydrocelectomy with orchiopexy Surgeon Sha Ku MD Anesthesia General Description of Procedure Patient was taken to the operative suite correctly identified. Once anesthesia was obtained was prepped and draped usual sterile fashion. Transverse hemiscrotal incision was made on the right. This was carried down through the tunica layers. The hydrocele was brought out into the operative field. It was opened with drainage of approximately 500 cc of straw-colored fluid. Hydrocele sac was then excised and the edges fulgurated. Quarter-inch [place] drain was then placed through a separate stab incision and secured with 3-0 chromic. Testicle was secured/orchiopexed in three-point fixture using 0 Ethibond. Tunic was closed using 3-0 chromic in a running fashion. Skin was anesthetized 1% lidocaine its closed with 3-0 chromic in a running fashion also. This completes dictation. Please send a copy of op note to my office Estimated Blood Loss 10 Drains Yes Packing No Pathology Yes Complications No immediate complications Condition Stable Disposition PACU
[2025-02-07] MEDS: LACTATED RINGERS 1,000 ML 30 ML IV CONT (08:58)
[2025-02-07] MEDS: oxyCODONE HCL (*CRX) 5 MG TAB IR PO (09:51)
--- NOTE | 2025-02-07 10:32 | SUR.PHASEII ---
1025: patient dressed and ready for dc. waiting on ride.
== END 2025-02-07 10:39 | disposition home or self-care (01) ==
PROVIDERS: Visit Provider Urology
PROC: (CPT 55040; principal; 2025-02-07 08:00)
DX: N43.3 Hydrocele, unspecified (principal); E78.5 Hyperlipidemia, unspecified; I10 Essential (primary) hypertension; F17.290 Nicotine dependence, other tobacco product, uncomplicated; Z98.890 Other specified postprocedural states
CPT/HCPCS: 55040; 54640; 88302; A9270; J0690; J1100; J2003; J2405; J2704; J3010; J7120